=== PATIENT | male | born 1970 | race Caucasian/White ===

== ENCOUNTER 2016-10-03 12:45 | Emergency (ER) | payer OTHER ==
--- NOTE | 2016-10-03 14:37 | DIAGNOSTIC IMAGING REPORT ---
PROCEDURE: XR KNEE 4 VIEWS - RIGHT INDICATION: TRAUMA/INJURY TECHNIQUE: Four views of the right knee. COMPARISON: None. FINDINGS: Normal mineralization. No fractures. Normal osseous alignment. No joint effusion. No suspicious soft-tissue calcification or radiodense foreign bodies. IMPRESSION: 1. Intact right knee.
--- NOTE | 2016-10-03 15:12 | ED CLINICAL REPORT ---
Clinical Report - Physicians/Mid Levels [facility] [address] [place] [address] 10/03/2016 12:53 Patient: VERONICA MONTAGUE Time Seen: 13:27; initial patient contact, initial documentation, patient care assumed. Arrived- By private vehicle. Historian- patient and friend. HISTORY OF PRESENT ILLNESS Chief Complaint: Injury to right knee. The injury happened just prior to arrival. The patient sustained a twisting injury. Occurred in the mountains. ( hiking, and was climbing a rock, knee twisted, felt pop and pain). Patient is experiencing moderate pain. Patient denies injury to the head or neck. No other injury. REVIEW OF SYSTEMS The patient complains of pain on weight bearing. No swelling, tingling, weakness, numbness or suspected foreign body. No skin laceration. All systems otherwise negative, except as recorded above. PAST HISTORY Negative. SOCIAL HISTORY Light tobacco smoker. Regular alcohol use. No drug use. No recent travel. Is a local resident. FAMILY HISTORY No significant family medical history. ADDITIONAL NOTES The nursing notes have been reviewed with agreement regarding the chief complaint, HPI, ROS, PMH and patient medications and allergies. PHYSICAL EXAM Vital Signs: 10/03/2016 13:08 BP: 145/77. HR: 76. RR: 18. O2 saturation: 98%. Temp: 97.8 F. Have been reviewed as normal and appear to be correct. Appearance: Alert. Oriented X3. No acute distress. Head: Head atraumatic. Eyes: Pupils equal, round and reactive to light. Eyes normal inspection. Respiratory: No respiratory distress. Skin: Skin intact. Skin warm and dry. Normal skin color. Normal skin turgor. Extremities: Right knee: mild tenderness located in the patella. Neurovascular intact distally. No ligamentous laxity present. No joint effusion. No erythema, swelling, laceration, abrasion or ecchymosis. No puncture wound, foreign body or deformity. No limitation in ROM. Lower extremity exam otherwise negative. Extremities otherwise negative. Gait: Abnormal gait. Gait not tested due to pain. Neuro, Vascular and Tendons: Vascular status intact. Sensation intact. Motor intact. Tendon function intact. Neuro: Oriented X 3. No motor deficit. No sensory deficit. Note: isolated injury to knee. LABS, X-RAYS, AND EKG X-Rays: Right knee negative. Rt Knee X-ray: (IMPRESSION: 1. Intact right knee. Electronically Final signed by:Lilly Schaefer MD 10/03/2016 2:37:37 PM). The X-rays were interpreted by the radiologist and contemporaneously by me. PROGRESS AND PROCEDURES Patient counseled in person regarding the patient's stable condition, test results and diagnosis. Differential Diagnosis: I considered fracture, stress fracture, sprain, hyperextension, dislocation, meniscus tear, anterior cruciate ligament tear, ligament tear, soft tissue injury, myositis, fasciitis, tendonitis and bursitis as a possible cause of lower extremity pain in this patient. This is a partial list of diagnoses considered. Above considerations are based on history and physical exam. Differential diagnosis was discussed with patient. Disposition: Discharged home in good and improved condition (15:12). Condition: good and stable. CLINICAL IMPRESSION Sprain of the lateral collateral ligament of the right knee. INSTRUCTIONS Apply ice for 20 minutes four times a day for one days until better. Wear elastic wrap (Lencho wrap) as directed for one weeks as needed and until better. Elevate affected areas above chest level for one days until better. Warnings: GENERAL WARNINGS: Return or contact your physician immediately if your condition worsens or changes unexpectedly, if not improving as expected, or if other problems arise. Specifically return if problem worsens. Prescription Medications: Ultram 50 mg tablets: take 1-2 orally every 6 hours as needed for pain. Dispense twenty (20). No refills. Substitution is permissible. Follow-up: Follow up with your doctor in about one week as needed. Call for an appointment. Summary of care provided to patient. Understanding of the discharge instructions verbalized by patient. Follow-up with: Cynthia Zelaya, [facility], , [address] [place] [address], [address], , [place], [address]; Sp Penny MD, [facility], , [facility], [address] [place] [address] [place] [address]; Ronni Burch MD, [facility], , [facility], [address] [place] [address]; Paul Goodman MD, [facility], , [facility], [address] [place] [address] [place] [address]; Deana Branch MD, [facility], [address] [place] [address], [facility], [address] [place] [address]; Keena Pineda PA-C, [facility], [address] [place] [address], [facility], [address] [place] [address], Suite [facility], [place] [address]; [facility], [facility], , [address] [place] [address], [address], [place] [address] Follow up in about one week as needed. Call for an appointment. Summary of care provided to patient. (Electronically signed by Hailey Jimenes A.R.N.P. 10/03/2016 18:48)
--- NOTE | 2016-10-03 15:12 | ED ORDER SUMMARY ---
..... Patient: VERONICA MONTGAUE OrderSheet [facility] VisitID: [id number] [place] [address] 46y, M Registration Date/Time: 10/03/2016 ORDER SHEET Weight: 83.0 kg (stated) Allergies: Amoxicillin GENERAL ORDERS: Knee 4V Right Urgent (13:35 10/03/2016 HBivens A.R.N.P.) (Ack 13:39 PWeiler ER Tech1) (13:47 PWeiler ER Tech1) MEDICATION ORDERS: Hydrocodone-APAP PO 5/325 mg (NOW, HIGH ALERT MEDICATION) (13:35 10/03/2016 HBivens A.R.N.P.) (Ack 13:48 ASchmuck) (13:52 ASchmuck) IV FLUIDS: ORDER SHEET NOTES: [Electronically signed by Adriana Esquivel (15:30 10/03/2016)] [Electronically signed by Hailey Jimenes A.R.N.P. (18:48 10/03/2016)] [Electronically locked/signed by Adriana Esquivel (15:30 10/03/2016)]
--- NOTE | 2016-10-03 15:12 | ED NURSING NOTES ---
Clinical Report - Nurses [facility] [address] [place] [address] 10/03/2016 12:53 Patient: VERONICA MONTAGUE TRIAGE Triage time 13:Oct 03 2016. Acuity: LEVEL 4. Chief Complaint: INJURY TO RIGHT KNEE. 13:08 10/03/16. Alert. No acute distress. SEPSIS SCREEN: Sepsis Screen. Negative (no infection suspected/documented). MARY JANE COMA SCORE: Mary Jane Coma Scale: 15- eyes open spontaneously (4); best verbal response- oriented x 4 (5); best motor response- obeys commands (6). --13:08 Adriana Esquivel 13:08 10/03/16. BP: 145/77. HR: 76. RR: 18. O2 saturation: 98%. Temp: 97.8 F. Pain level now 8/10. --13:08 Adriana Esquivel. Weight: 83 kg stated. Height/Length: 71 inches Per Patient. BMI: 25.5. --13:07 Adriana Esquivel. Medications Zyrtec. --13:06 Adriana Esquivel. Medication/allergy information source: the patient. --13:08 Adriana Esquivel. Allergies Amoxicillin. --13:06 Adriana Esquivel. History Arrived by private vehicle. Historian: patient. Accompanied by (cousin). Primary physician (Doesn't have one-would like referral). This occurred just prior to arrival. Occurred (River). ( Pt states that he was climbing a rock and his knee twisted and popped. Cousin states that he heard the pop from about 30 feet away. Pt reports that this has happened before, but not to this extent.). He has had trouble walking. No numbness, tingling, neck pain or back pain. Treatment E LEARNING COORDINATOR: None. PAST MEDICAL HX: Immunizations: up-to-date. SOCIAL HX: Former smoker (in the process of quitting). Alcohol use. (every other day). No drug use. FALL RISK ASSESSMENT: Fall risk assessment completed. No fall risk identified. NUTRITIONAL RISK ASSESSMENT: The nutritional risk assessment revealed no deficiencies. FUNCTIONAL ASSESSMENT: Functional assessment: no impairments noted. LEARNING NEEDS ASSESSMENT: The learning needs assessment revealed no barriers. SKIN INTEGRITY ASSESSMENT: Skin integrity risk assessment completed. No skin integrity risk identified. --13:08 Adriana Esquivel. Assessment The patient states feels the same. --13:08 Adriana Esquivel. Interventions ID band on patient. --13:08 Adriana Esquivel. PHYSICAL ASSESSMENT 13:10/03/16. To room via wheelchair. GENERAL / NEURO / PSYCH: Oriented X 4. Alert. Appears in no acute distress. EXTREMITIES: Capillary refill is less than 2 seconds in the extremities. Extremity pulses are within normal limits. Extremities exhibit normal ROM. Limping gait. Neuro-vascular status intact to the extremity. Right knee: tenderness. SKIN: Skin intact. Skin is warm and dry. --13:09 Adriana Esquivel. NURSING PROGRESS NOTES 13:10/03/16. The plan of care for this patient has been created. Cold pack applied. Extremity elevated. Neuro-vascular extremity check. Reassurance given. Two patient identifiers checked. Call light placed in reach. Side rails up x 1. Bed placed in lowest position. Brakes of bed on. Patient ready for evaluation- chart flagged and ED physician and CRITICAL CARE REGISTERED NURSE notified. --13:10 Adriana Esquivel 13:52 10/03/2016 Hydrocodone-APAP (Hydrocodone-Acetaminophen) PO 5/325 mg Tablets 1 tab given. Allergies verified, confirmed 5 rights and sedative warning given to the patient and patient's leaf coverer. --13:53 Adriana Esquivel. DISPOSITION / DISCHARGE 15:23 10/03/16. Departure time: 15:Oct 03 2016. Condition at departure: improved. The goals identified in the patient's plan of care were met. No learning barriers present. Discharge instructions provided and reviewed with the patient. Reviewed warnings (Patient verbalized understanding of sedation warning as well as of awareness of warning s/sx listed in dc paperwork.). Reviewed medication(s) precautions, dosing and course information. Prescription(s) given to the patient (Ultram). Treatments reviewed. Reviewed referral to a primary care physician for followup. Patient verbalized understanding. Written instructions provided in Serbian. The patient was discharged by the nurse practitioner. He was discharged home and accompanied by family. He left the Emergency Department ambulatory and via private vehicle. Family member driving. FALL RISK ASSESSMENT: Fall risk assessment completed. No fall risk identified. MARY JANE COMA SCORE: Mary Jane Coma Scale: 15- eyes open spontaneously (4); best verbal response- oriented x 4 (5); best motor response- obeys commands (6). --15:29 Adriana Esquivel 15:23 10/03/16. BP: 140/76. HR: 81. RR: 16. O2 saturation: 96% on room air. Temp: 98.6 F (oral). Pain level now: 07/23. --15:29 Adriana Esquivel. Locked/Released at 10/03/2016 15:30 by Adriana Esquivel,
--- NOTE | 2016-10-03 15:12 | ED NURSING NOTES ---
Clinical Report - Nurses [facility] [address] [place] [address] 10/03/2016 12:53 Patient: VERONICA MONTAGUE TRIAGE Triage time 13:Oct 03 2016. Acuity: LEVEL 4. Chief Complaint: INJURY TO RIGHT KNEE. 13:08 10/03/16. Alert. No acute distress. SEPSIS SCREEN: Sepsis Screen. Negative (no infection suspected/documented). MARY JANE COMA SCORE: Mary Jane Coma Scale: 15- eyes open spontaneously (4); best verbal response- oriented x 4 (5); best motor response- obeys commands (6). --13:08 Adriana Esquivel 13:08 10/03/16. BP: 145/77. HR: 76. RR: 18. O2 saturation: 98%. Temp: 97.8 F. Pain level now 8/10. --13:08 Adriana Esquivel. Weight: 83 kg stated. Height/Length: 71 inches Per Patient. BMI: 25.5. --13:07 Adriana Esquivel. Medications Zyrtec. --13:06 Adriana Esquivel. Medication/allergy information source: the patient. --13:08 Adriana Esquivel. Allergies Amoxicillin. --13:06 Adriana Esquivel. History Arrived by private vehicle. Historian: patient. Accompanied by (cousin). Primary physician (Doesn't have one-would like referral). This occurred just prior to arrival. Occurred (River). ( Pt states that he was climbing a rock and his knee twisted and popped. Cousin states that he heard the pop from about 30 feet away. Pt reports that this has happened before, but not to this extent.). He has had trouble walking. No numbness, tingling, neck pain or back pain. Treatment SHIPFITTER APPRENTICE: None. PAST MEDICAL HX: Immunizations: up-to-date. SOCIAL HX: Former smoker (in the process of quitting). Alcohol use. (every other day). No drug use. FALL RISK ASSESSMENT: Fall risk assessment completed. No fall risk identified. NUTRITIONAL RISK ASSESSMENT: The nutritional risk assessment revealed no deficiencies. FUNCTIONAL ASSESSMENT: Functional assessment: no impairments noted. LEARNING NEEDS ASSESSMENT: The learning needs assessment revealed no barriers. SKIN INTEGRITY ASSESSMENT: Skin integrity risk assessment completed. No skin integrity risk identified. --13:08 Adriana Esquivel. Assessment The patient states feels the same. --13:08 Adriana Esquivel. Interventions ID band on patient. --13:08 Adriana Esquivel. PHYSICAL ASSESSMENT 13:10/03/16. To room via wheelchair. GENERAL / NEURO / PSYCH: Oriented X 4. Alert. Appears in no acute distress. EXTREMITIES: Capillary refill is less than 2 seconds in the extremities. Extremity pulses are within normal limits. Extremities exhibit normal ROM. Limping gait. Neuro-vascular status intact to the extremity. Right knee: tenderness. SKIN: Skin intact. Skin is warm and dry. --13:09 Adriana Esquivel. NURSING PROGRESS NOTES 13:10/03/16. The plan of care for this patient has been created. Cold pack applied. Extremity elevated. Neuro-vascular extremity check. Reassurance given. Two patient identifiers checked. Call light placed in reach. Side rails up x 1. Bed placed in lowest position. Brakes of bed on. Patient ready for evaluation- chart flagged and ED physician and GRADUATE RN notified. --13:10 Adriana Esquivel 13:52 10/03/2016 Hydrocodone-APAP (Hydrocodone-Acetaminophen) PO 5/325 mg Tablets 1 tab given. Allergies verified, confirmed 5 rights and sedative warning given to the patient and patient's customer service advocate. --13:53 Adriana Esquivel. DISPOSITION / DISCHARGE 15:23 10/03/16. Departure time: 15:Oct 03 2016. Condition at departure: improved. The goals identified in the patient's plan of care were met. No learning barriers present. Discharge instructions provided and reviewed with the patient. Reviewed warnings (Patient verbalized understanding of sedation warning as well as of awareness of warning s/sx listed in dc paperwork.). Reviewed medication(s) precautions, dosing and course information. Prescription(s) given to the patient (Ultram). Treatments reviewed. Reviewed referral to a primary care physician for followup. Patient verbalized understanding. Written instructions provided in Kyrgyz. The patient was discharged by the nurse practitioner. He was discharged home and accompanied by family. He left the Emergency Department ambulatory and via private vehicle. Family member driving. FALL RISK ASSESSMENT: Fall risk assessment completed. No fall risk identified. MARY JANE COMA SCORE: Mary Jane Coma Scale: 15- eyes open spontaneously (4); best verbal response- oriented x 4 (5); best motor response- obeys commands (6). --15:29 Adriana Esquivel 15:23 10/03/16. BP: 140/76. HR: 81. RR: 16. O2 saturation: 96% on room air. Temp: 98.6 F (oral). Pain level now: 07/23. --15:29 Adriana Esquivel. Locked/Released at 10/03/2016 15:30 by Adriana Esquivel,
--- NOTE | 2016-10-03 15:12 | ED ORDER SUMMARY ---
..... Patient: VERONICA MONTAGUE OrderSheet [facility] VisitID: [id number] [place] [address] 46y, M Registration Date/Time: 10/03/2016 ORDER SHEET Weight: 83.0 kg (stated) Allergies: Amoxicillin GENERAL ORDERS: Knee 4V Right Urgent (13:35 10/03/2016 HBivens A.R.N.P.) (Ack 13:39 PWeiler ER Tech1) (13:47 PWeiler ER Tech1) MEDICATION ORDERS: Hydrocodone-APAP PO 5/325 mg (NOW, HIGH ALERT MEDICATION) (13:35 10/03/2016 HBivens A.R.N.P.) (Ack 13:48 ASchmuck) (13:52 ASchmuck) IV FLUIDS: ORDER SHEET NOTES: [Electronically signed by Adriana Esquivel (15:30 10/03/2016)] [Electronically signed by Hailey Jimenes A.R.N.P. (18:48 10/03/2016)] [Electronically locked/signed by Adriana Esquivel (15:30 10/03/2016)]
--- NOTE | 2016-10-03 15:12 | ED CLINICAL REPORT ---
Clinical Report - Physicians/Mid Levels [facility] [address] [place] [address] 10/03/2016 12:53 Patient: VERONICA MONTAGUE Time Seen: 13:27; initial patient contact, initial documentation, patient care assumed. Arrived- By private vehicle. Historian- patient and friend. HISTORY OF PRESENT ILLNESS Chief Complaint: Injury to right knee. The injury happened just prior to arrival. The patient sustained a twisting injury. [place] the [place]. ( hiking, and was climbing a rock, knee twisted, felt pop and pain). Patient is experiencing moderate pain. Patient denies injury to the head or neck. No other injury. REVIEW OF SYSTEMS The patient complains of pain on weight bearing. No swelling, tingling, weakness, numbness or suspected foreign body. No skin laceration. All systems otherwise negative, except as recorded above. PAST HISTORY Negative. SOCIAL HISTORY Light tobacco smoker. Regular alcohol use. No drug use. No recent travel. Is a local resident. FAMILY HISTORY No significant family medical history. ADDITIONAL NOTES The nursing notes have been reviewed with agreement regarding the chief complaint, HPI, ROS, PMH and patient medications and allergies. PHYSICAL EXAM Vital Signs: 10/03/2016 13:08 BP: 145/77. HR: 76. RR: 18. O2 saturation: 98%. Temp: 97.8 F. Have been reviewed as normal and appear to be correct. Appearance: Alert. Oriented X3. No acute distress. Head: Head atraumatic. Eyes: Pupils equal, round and reactive to light. Eyes normal inspection. Respiratory: No respiratory distress. Skin: Skin intact. Skin warm and dry. Normal skin color. Normal skin turgor. Extremities: Right knee: mild tenderness located in the patella. Neurovascular intact distally. No ligamentous laxity present. No joint effusion. No erythema, swelling, laceration, abrasion or ecchymosis. No puncture wound, foreign body or deformity. No limitation in ROM. Lower extremity exam otherwise negative. Extremities otherwise negative. Gait: Abnormal gait. Gait not tested due to pain. Neuro, Vascular and Tendons: Vascular status intact. Sensation intact. Motor intact. Tendon function intact. Neuro: Oriented X 3. No motor deficit. No sensory deficit. Note: isolated injury to knee. LABS, X-RAYS, AND EKG X-Rays: Right knee negative. Rt Knee X-ray: (IMPRESSION: 1. Intact right knee. Electronically Final signed by:Lilly Schaefer MD 10/03/2016 2:37:37 PM). The X-rays were interpreted by the radiologist and contemporaneously by me. PROGRESS AND PROCEDURES Patient counseled in person regarding the patient's stable condition, test results and diagnosis. Differential Diagnosis: I considered fracture, stress fracture, sprain, hyperextension, dislocation, meniscus tear, anterior cruciate ligament tear, ligament tear, soft tissue injury, myositis, fasciitis, tendonitis and bursitis as a possible cause of lower extremity pain in this patient. This is a partial list of diagnoses considered. Above considerations are based on history and physical exam. Differential diagnosis was discussed with patient. Disposition: Discharged home in good and improved condition (15:12). Condition: good and stable. CLINICAL IMPRESSION Sprain of the lateral collateral ligament of the right knee. INSTRUCTIONS Apply ice for 20 minutes four times a day for one days until better. Wear elastic wrap (Lencho wrap) as directed for one weeks as needed and until better. Elevate affected areas above chest level for one days until better. Warnings: GENERAL WARNINGS: Return or contact your physician immediately if your condition worsens or changes unexpectedly, if not improving as expected, or if other problems arise. Specifically return if problem worsens. Prescription Medications: Ultram 50 mg tablets: take 1-2 orally every 6 hours as needed for pain. Dispense twenty (20). No refills. Substitution is permissible. Follow-up: Follow up with your doctor in about one week as needed. Call for an appointment. Summary of care provided to patient. Understanding of the discharge instructions verbalized by patient. Follow-up with: Cynthia Zelaya, [facility], , [address] [place] [address], [address], , [place], [address]; Sp Penny MD, [facility], , [facility], [address] [place] [address] [place] [address]; Ronni Burch MD, [facility], , [facility], [address] [place] [address]; Paul Goodman MD, [facility], , [facility], [address] [place] [address] [place] [address]; Deana Branch MD, [facility], [address] [place] [address], [facility], [address] [place] [address]; Keena Pineda PA-C, [facility], [address] [place] [address], [facility], [address] [place] [address], Suite [facility], [place] [address]; [facility], [facility], , [address] [place] [address], [address], [place] [address] Follow up in about one week as needed. Call for an appointment. Summary of care provided to patient. (Electronically signed by Hailey Jimenes A.R.N.P. 10/03/2016 18:48)
--- NOTE | 2016-10-03 18:48 | ED MAR SUMMARY ---
..... Medication Administration Record [facility] [address] [place] [address] Patient: VERONICA MONTAGUE Visit ID: [id number] 46y, M Weight: 83.0 kg Height/Length: 71 in BMI: 25.5 ALLERGIES: Amoxicillin Given 13:52 10/03/2016 Adriana Esquivel, Medication Administered: HYDROCODONE-APAP [PO] (HYDROCODONE-ACETAMINOPHEN), Dose: 1 tab 5/325 mg Tablets PO. Medication Ordered: Hydrocodone-APAP PO 5/325 mg (NOW, HIGH ALERT MEDICATION).
--- NOTE | 2016-10-03 18:48 | ED MED RECONCILIATION SUMMARY ---
Patient: VERONICA MONTAGUE Medication Reconciliation Report [facility] VisitID: [id number] [address] [place] [address] 46y, M Registration Date/Time: 10/03/2016 Weight: 83.0 kg Height/Length: 71 in. BMI: 25.5 ALLERGIES: Amoxicillin The patient's Home Medications are listed below: THE FOLLOWING MEDICATIONS NEED TO BE RECONCILED: Zyrtec The source(s) of the original Home Medication information: patient The following Medications were given to the patient in the Emergency Department: Hydrocodone-APAP [PO] PO 1 tab, administered: 10/03/2016 1:52:00 PM The following Medications were prescribed to the patient: Ultram 50 mg tablets: take 1-2 orally every 6 hours as needed for pain. Dispense twenty (20). No refills. Substitution is permissible. -- Hailey Jimenes A.R.N.P.
--- NOTE | 2016-10-03 18:48 | ED DISCHARGE INSTRUCTIONS ---
Patient: VERONICA MONTAGUE General Instructions [facility] VisitID: [id number] [place] [address] 46y, M Registration Date/Time: 10/03/2016 Sprain of the lateral collateral ligament of the right knee. INSTRUCTIONS Apply ice for 20 minutes four times a day for one days until better. Wear elastic wrap (Lencho wrap) as directed for one weeks as needed and until better. Elevate affected areas above chest level for one days until better. Warnings: GENERAL WARNINGS: Return or contact your physician immediately if your condition worsens or changes unexpectedly, if not improving as expected, or if other problems arise. Specifically return if problem worsens. Prescription Medications: Ultram 50 mg tablets: take 1-2 orally every 6 hours as needed for pain. Dispense twenty (20). No refills. Substitution is permissible. Follow-up: Follow up with your doctor in about one week as needed. Call for an appointment. Summary of care provided to patient. Understanding of the discharge instructions verbalized by patient. Follow-up with: Cynthia Zelaya, [facility], , [address] [place] [address], [address], , [place] [address]; Sp Penny MD, [facility], [address] [place] [address], [facility], [address] [place] [address]; Ronni Burch MD, [facility], , [facility], [facility] [place] [address]; Paul Goodman MD, [facility], , [facility], [address] [place] [address]; Deana Branch MD, [facility], [address] [place] [address], [facility], [address] [place] [address]; Keena Pineda PA-C, [facility], [address] [place] [address], [facility], [address] [place] [address] [address] [facility][note 2], [place] [address]; [facility], [facility], [address] [place] [address], [address] [place] [address], [address] [address] Follow up in about one week as needed. Call for an appointment. Summary of care provided to patient. ADDITIONAL INFORMATION Sprain, Knee A sprain is an injury to the ligaments or capsule that holds a joint together. There are no broken bones. Most sprains take three to six weeks to heal. If the ligament is completely torn (severe sprain), it can take months to recover from. Most knee sprains are treated with a splint, knee immobilizer or elastic wrap for support. Severe sprains may require surgery. Home care The following guidelines will help you care for your injury at home: Stay off the injured leg as much as possible until you can walk on it without pain. If you have a lot of pain with walking, crutches or a walker may be prescribed. (These can be rented or purchased at many pharmacies and surgical or orthopedic supply stores). Follow your doctor's advice regarding when to begin bearing weight on that leg. Keep your leg elevated to reduce pain and swelling. When sleeping, place a pillow under the injured leg. When sitting, support the injured leg so it is level with your waist. This is very important during the first 48 hours. Apply an ice pack (ice cubes in a plastic bag, wrapped in a towel) over the injured area for 20 minutes every 12 hours the first day. You can place the ice pack directly over the splint. If a Velcro knee immobilizer was applied, you can open this to apply the ice pack directly to the knee. Continue with ice packs 34 times a day for the next two days, then as needed for the relief of pain and swelling. You may use acetaminophen or ibuprofen to control pain, unless another pain medicine was prescribed. If you have chronic liver or kidney disease or ever had a stomach ulcer or GI bleeding, talk with your doctor before using these medicines. If you were given a splint, keep it completely dry at all times. Bathe with your splint out of the water, protected with a large plastic bag, rubber-banded at the top end. If a fiberglass splint gets wet, you can dry it with a hair-dryer. If you have a Velcro knee immobilizer, you can remove this to bathe, unless told otherwise. Follow-up care Follow up with your doctor as advised. Any X-rays you had today dont show any broken bones, breaks, or fractures. Sometimes fractures dont show up on the first X-ray. Bruises and sprains can sometimes hurt as much as a fracture. These injuries can take time to heal completely. If your symptoms dont improve or they get worse, talk with your doctor. You may need a repeat X-ray. When to seek medical care Get prompt medical attention if any of the following occur: The plaster cast or splint becomes wet or soft The fiberglass cast or splint remains wet for more than 24 hours Pain or swelling increases Toes become cold, blue, numb or tingly Lencho Wrap An "Lencho Bandage" refers to any elastic bandage wrap (2-6" wide). This is used to apply support and compression to an arm or leg. It will help prevent or reduce swelling also. When applying the bandage, it should not be stretched too tightly. A tight Lencho Wrap will reduce circulation and cause tingling or numbness in the hand or foot. It may increase the pain under the bandage. If you get these symptoms, remove the wrap and rest the limb. Symptoms should go away within 1-2 hours. Once symptoms go away, reapply the bandage with less stretch. If symptoms do not go away after 1-2 hours with the bandage off, call your doctor or return to this facility promptly. Tramadol Hydrochloride Oral tablet What is this medicine? TRAMADOL (TRA ma dole) is a pain reliever. It is used to treat moderate to severe pain in adults. How should I use this medicine? Take this medicine by mouth with a full glass of water. Follow the directions on the prescription label. If the medicine upsets your stomach, take it with food or milk. Do not take more medicine than you are told to take. Talk to your casino assistant manager regarding the use of this medicine in children. Special care may be needed. What side effects may I notice from receiving this medicine? Side effects that you should report to your doctor or health emergency care attendant as soon as possible: allergic reactions like skin rash, itching or hives, swelling of the face, lips, or tongue breathing difficulties, wheezing confusion itching light headedness or fainting spells redness, blistering, peeling or loosening of the skin, including inside the mouth seizures Side effects that usually do not require medical attention (report to your doctor or health emergency care attendant if they continue or are bothersome): constipation dizziness drowsiness headache nausea, vomiting What may interact with this medicine? Do not take this medicine with any of the following medications: MAOIs like Carbex, Eldepryl, Marplan, Nardil, and Parnate This medicine may also interact with the following medications: alcohol or medicines that contain alcohol antihistamines benzodiazepines bupropion carbamazepine or oxcarbazepine clozapine cyclobenzaprine digoxin furazolidone linezolid medicines for depression, anxiety, or psychotic disturbances medicines for migraine headache like almotriptan, eletriptan, frovatriptan, naratriptan, rizatriptan, sumatriptan, zolmitriptan medicines for pain like pentazocine, buprenorphine, butorphanol, meperidine, nalbuphine, and propoxyphene medicines for sleep muscle relaxants naltrexone phenobarbital phenothiazines like perphenazine, thioridazine, chlorpromazine, mesoridazine, fluphenazine, prochlorperazine, promazine, and trifluoperazine procarbazine warfarin What if I miss a dose? If you miss a dose, take it as soon as you can. If it is almost time for your next dose, take only that dose. Do not take double or extra doses. Where should I keep my medicine? Keep out of the reach of children. Store at room temperature between 15 and 30 degrees C (59 and 86 degrees F). Keep container tightly closed. Throw away any unused medicine after the expiration date. What should I tell my health care provider before I take this medicine? They need to know if you have any of these conditions: brain tumor depression drug abuse or addiction head injury if you frequently drink alcohol containing drinks kidney disease or trouble passing urine liver disease lung disease, asthma, or breathing problems seizures or epilepsy suicidal thoughts, plans, or attempt; a previous suicide attempt by you or a family member an unusual or allergic reaction to tramadol, codeine, other medicines, foods, dyes, or preservatives or trying to get breast-feeding What should I watch for while using this medicine? Tell your doctor or health emergency care attendant if your pain does not go away, if it gets worse, or if you have new or a different type of pain. You may develop tolerance to the medicine. Tolerance means that you will need a higher dose of the medicine for pain relief. Tolerance is normal and is expected if you take this medicine for a long time. Do not suddenly stop taking your medicine because you may develop a severe reaction. Your body becomes used to the medicine. This does NOT mean you are addicted. Addiction is a behavior related to getting and using a drug for a non-medical reason. If you have pain, you have a medical reason to take pain medicine. Your doctor will tell you how much medicine to take. If your doctor wants you to stop the medicine, the dose will be slowly lowered over time to avoid any side effects. You may get drowsy or dizzy. Do not drive, use machinery, or do anything that needs mental alertness until you know how this medicine affects you. Do not stand or sit up quickly, especially if you are an older patient. This reduces the risk of dizzy or fainting spells. Alcohol can increase or decrease the effects of this medicine. Avoid alcoholic drinks. You may have constipation. Try to have a bowel movement at least every 2 to 3 days. If you do not have a bowel movement for 3 days, call your doctor or health emergency care attendant. Your mouth may get dry. Chewing sugarless gum or sucking hard candy, and drinking plenty of water may help. Contact your doctor if the problem does not go away or is severe. You have been given the following additional information: Knee Sprain Lencho Wrap Tramadol Hydrochloride Oral tablet (Electronically signed by Hailey Jimenes A.R.N.P. 10/03/2016 18:48)
--- NOTE | 2016-10-03 18:48 | ED MAR SUMMARY ---
..... Medication Administration Record [facility] [address] [place] [address] Patient: VERONICA MONTAGUE Visit ID: [id number] 46y, M Weight: 83.0 kg Height/Length: 71 in BMI: 25.5 ALLERGIES: Amoxicillin Given 13:52 10/03/2016 Adriana Esquivel, Medication Administered: HYDROCODONE-APAP [PO] (HYDROCODONE-ACETAMINOPHEN), Dose: 1 tab 5/325 mg Tablets PO. Medication Ordered: Hydrocodone-APAP PO 5/325 mg (NOW, HIGH ALERT MEDICATION).
--- NOTE | 2016-10-03 18:48 | ED MED RECONCILIATION SUMMARY ---
Patient: VERONICA MONTAGUE Medication Reconciliation Report [facility] VisitID: [id number] [address] [place] [address] 46y, M Registration Date/Time: 10/03/2016 Weight: 83.0 kg Height/Length: 71 in. BMI: 25.5 ALLERGIES: Amoxicillin The patient's Home Medications are listed below: THE FOLLOWING MEDICATIONS NEED TO BE RECONCILED: Zyrtec The source(s) of the original Home Medication information: patient The following Medications were given to the patient in the Emergency Department: Hydrocodone-APAP [PO] PO 1 tab, administered: 10/03/2016 1:52:00 PM The following Medications were prescribed to the patient: Ultram 50 mg tablets: take 1-2 orally every 6 hours as needed for pain. Dispense twenty (20). No refills. Substitution is permissible. -- Hailey Jimenes A.R.N.P.
--- NOTE | 2016-10-03 18:48 | ED DISCHARGE INSTRUCTIONS ---
Patient: VERONICA MONTAGUE General Instructions [facility] VisitID: [id number] [place] [address] 46y, M Registration Date/Time: 10/03/2016 Sprain of the lateral collateral ligament of the right knee. INSTRUCTIONS Apply ice for 20 minutes four times a day for one days until better. Wear elastic wrap (Lencho wrap) as directed for one weeks as needed and until better. Elevate affected areas above chest level for one days until better. Warnings: GENERAL WARNINGS: Return or contact your physician immediately if your condition worsens or changes unexpectedly, if not improving as expected, or if other problems arise. Specifically return if problem worsens. Prescription Medications: Ultram 50 mg tablets: take 1-2 orally every 6 hours as needed for pain. Dispense twenty (20). No refills. Substitution is permissible. Follow-up: Follow up with your doctor in about one week as needed. Call for an appointment. Summary of care provided to patient. Understanding of the discharge instructions verbalized by patient. Follow-up with: Cynthia Zelaya, [facility], , [address] [place] [address], [address], , [place] [address]; Sp Penny MD, [facility], [address] [place] [address], [facility], [address] [place] [address]; Ronni Burch MD, [facility], , [facility], [facility] [place] [address]; Paul Goodman MD, [facility], , [facility], [address] [place] [address]; Denaa Branch MD, [facility], [address] [place] [address], [facility], [address] [place] [address]; Keena Pineda PA-C, [facility], [address] [place] [address], [facility], [address] [place] [address] [address] [facility], [place] [address]; [facility], [facility], [address] [place] [address], [address] [place] [address], [address] [address] Follow up in about one week as needed. Call for an appointment. Summary of care provided to patient. ADDITIONAL INFORMATION Sprain, Knee A sprain is an injury to the ligaments or capsule that holds a joint together. There are no broken bones. Most sprains take three to six weeks to heal. If the ligament is completely torn (severe sprain), it can take months to recover from. Most knee sprains are treated with a splint, knee immobilizer or elastic wrap for support. Severe sprains may require surgery. Home care The following guidelines will help you care for your injury at home: Stay off the injured leg as much as possible until you can walk on it without pain. If you have a lot of pain with walking, crutches or a walker may be prescribed. (These can be rented or purchased at many pharmacies and surgical or orthopedic supply stores). Follow your doctor's advice regarding when to begin bearing weight on that leg. Keep your leg elevated to reduce pain and swelling. When sleeping, place a pillow under the injured leg. When sitting, support the injured leg so it is level with your waist. This is very important during the first 48 hours. Apply an ice pack (ice cubes in a plastic bag, wrapped in a towel) over the injured area for 20 minutes every 12 hours the first day. You can place the ice pack directly over the splint. If a Velcro knee immobilizer was applied, you can open this to apply the ice pack directly to the knee. Continue with ice packs 34 times a day for the next two days, then as needed for the relief of pain and swelling. You may use acetaminophen or ibuprofen to control pain, unless another pain medicine was prescribed. If you have chronic liver or kidney disease or ever had a stomach ulcer or GI bleeding, talk with your doctor before using these medicines. If you were given a splint, keep it completely dry at all times. Bathe with your splint out of the water, protected with a large plastic bag, rubber-banded at the top end. If a fiberglass splint gets wet, you can dry it with a hair-dryer. If you have a Velcro knee immobilizer, you can remove this to bathe, unless told otherwise. Follow-up care Follow up with your doctor as advised. Any X-rays you had today dont show any broken bones, breaks, or fractures. Sometimes fractures dont show up on the first X-ray. Bruises and sprains can sometimes hurt as much as a fracture. These injuries can take time to heal completely. If your symptoms dont improve or they get worse, talk with your doctor. You may need a repeat X-ray. When to seek medical care Get prompt medical attention if any of the following occur: The plaster cast or splint becomes wet or soft The fiberglass cast or splint remains wet for more than 24 hours Pain or swelling increases Toes become cold, blue, numb or tingly Lencho Wrap An "Lencho Bandage" refers to any elastic bandage wrap (2-6" wide). This is used to apply support and compression to an arm or leg. It will help prevent or reduce swelling also. When applying the bandage, it should not be stretched too tightly. A tight Lencho Wrap will reduce circulation and cause tingling or numbness in the hand or foot. It may increase the pain under the bandage. If you get these symptoms, remove the wrap and rest the limb. Symptoms should go away within 1-2 hours. Once symptoms go away, reapply the bandage with less stretch. If symptoms do not go away after 1-2 hours with the bandage off, call your doctor or return to this facility promptly. Tramadol Hydrochloride Oral tablet What is this medicine? TRAMADOL (TRA ma dole) is a pain reliever. It is used to treat moderate to severe pain in adults. How should I use this medicine? Take this medicine by mouth with a full glass of water. Follow the directions on the prescription label. If the medicine upsets your stomach, take it with food or milk. Do not take more medicine than you are told to take. Talk to your bulb farmworker regarding the use of this medicine in children. Special care may be needed. What side effects may I notice from receiving this medicine? Side effects that you should report to your doctor or health care clinician as soon as possible: allergic reactions like skin rash, itching or hives, swelling of the face, lips, or tongue breathing difficulties, wheezing confusion itching light headedness or fainting spells redness, blistering, peeling or loosening of the skin, including inside the mouth seizures Side effects that usually do not require medical attention (report to your doctor or health care clinician if they continue or are bothersome): constipation dizziness drowsiness headache nausea, vomiting What may interact with this medicine? Do not take this medicine with any of the following medications: MAOIs like Carbex, Eldepryl, Marplan, Nardil, and Parnate This medicine may also interact with the following medications: alcohol or medicines that contain alcohol antihistamines benzodiazepines bupropion carbamazepine or oxcarbazepine clozapine cyclobenzaprine digoxin furazolidone linezolid medicines for depression, anxiety, or psychotic disturbances medicines for migraine headache like almotriptan, eletriptan, frovatriptan, naratriptan, rizatriptan, sumatriptan, zolmitriptan medicines for pain like pentazocine, buprenorphine, butorphanol, meperidine, nalbuphine, and propoxyphene medicines for sleep muscle relaxants naltrexone phenobarbital phenothiazines like perphenazine, thioridazine, chlorpromazine, mesoridazine, fluphenazine, prochlorperazine, promazine, and trifluoperazine procarbazine warfarin What if I miss a dose? If you miss a dose, take it as soon as you can. If it is almost time for your next dose, take only that dose. Do not take double or extra doses. Where should I keep my medicine? Keep out of the reach of children. Store at room temperature between 15 and 30 degrees C (59 and 86 degrees F). Keep container tightly closed. Throw away any unused medicine after the expiration date. What should I tell my health care provider before I take this medicine? They need to know if you have any of these conditions: brain tumor depression drug abuse or addiction head injury if you frequently drink alcohol containing drinks kidney disease or trouble passing urine liver disease lung disease, asthma, or breathing problems seizures or epilepsy suicidal thoughts, plans, or attempt; a previous suicide attempt by you or a family member an unusual or allergic reaction to tramadol, codeine, other medicines, foods, dyes, or preservatives or trying to get breast-feeding What should I watch for while using this medicine? Tell your doctor or health care clinician if your pain does not go away, if it gets worse, or if you have new or a different type of pain. You may develop tolerance to the medicine. Tolerance means that you will need a higher dose of the medicine for pain relief. Tolerance is normal and is expected if you take this medicine for a long time. Do not suddenly stop taking your medicine because you may develop a severe reaction. Your body becomes used to the medicine. This does NOT mean you are addicted. Addiction is a behavior related to getting and using a drug for a non-medical reason. If you have pain, you have a medical reason to take pain medicine. Your doctor will tell you how much medicine to take. If your doctor wants you to stop the medicine, the dose will be slowly lowered over time to avoid any side effects. You may get drowsy or dizzy. Do not drive, use machinery, or do anything that needs mental alertness until you know how this medicine affects you. Do not stand or sit up quickly, especially if you are an older patient. This reduces the risk of dizzy or fainting spells. Alcohol can increase or decrease the effects of this medicine. Avoid alcoholic drinks. You may have constipation. Try to have a bowel movement at least every 2 to 3 days. If you do not have a bowel movement for 3 days, call your doctor or health care clinician. Your mouth may get dry. Chewing sugarless gum or sucking hard candy, and drinking plenty of water may help. Contact your doctor if the problem does not go away or is severe. You have been given the following additional information: Knee Sprain Lencho Wrap Tramadol Hydrochloride Oral tablet (Electronically signed by Hailey Jimenes A.R.N.P. 10/03/2016 18:48)
== END 2016-10-03 15:23 | disposition home or self-care (01) ==
LOC: ED SRH 12:45
DX: S83.421A Sprain of lateral collateral ligament of right knee, initial encounter (principal); X50.1XXA Overexertion from prolonged static or awkward postures, initial encounter; Y93.31 Activity, mountain climbing, rock climbing and wall climbing; Y92.828 Other wilderness area as the place of occurrence of the external cause; Y99.8 Other external cause status; Z79.899 Other long term (current) drug therapy; F17.200 Nicotine dependence, unspecified, uncomplicated; Z88.0 Allergy status to penicillin